=== PATIENT | male | born 1985 ===

== ENCOUNTER 2020-12-22 11:27 | Emergency (ER) | payer BC ==
[~2020-12-22] VITALS: Ht 167.6 cm; Wt 63.6 kg
[2020-12-22 11:33] VITALS: BP 104/55
--- NOTE | 2020-12-22 14:55 | NUR ---
LAB ATTEMPTED TO DRAW PT, PT WAS NIL
== END 2020-12-22 21:44 | disposition left against medical advice (07) ==
LOC: ER 11:28
DX: R10.9 Unspecified abdominal pain (principal); Z53.21 Procedure and treatment not carried out due to patient leaving prior to being seen by health care provider